=== PATIENT | male | born 1985 | race African-American/Black ===

== ENCOUNTER 2017-01-07 15:40 | Emergency (ER) | payer OTHER ==
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
[2017-01-07 16:05] LABS: ABSOLUTE EOSINOPHILS # (AUTO) 0.1 10^3/uL (0.0-0.6); ABSOLUTE LYMPHOCYTES (AUTO) 2.1 10^3/uL (0.5-4.7); ABSOLUTE MONOCYTES (AUTO) 0.4 10^3/uL (0.1-1.4); ABSOLUTE NEUT (AUTO) 3.1 10^3/uL (1.7-8.2); BASOPHILS % (AUTO) 0.8 % (0-2); HEMATOCRIT 45.9 % (37.9-51.0); HEMOGLOBIN 15.5 g/dL (13.5-17.0); HGB HCT DIFFERENCE 0.6; LYMPHOCYTES % (AUTO) 37.1 % (13-45); MEAN CORPUSCULAR HEMOGLOBIN 28.5 pg (27.0-33.4); MEAN CORPUSCULAR HGB CONC 33.7 g/dL (32.0-36.0); MEAN CORPUSCULAR VOLUME 85 fl (80-97); MONOCYTES % (AUTO) 7.6 % (3-13); RED BLOOD COUNT 5.42 10^6/uL (4.35-5.55); RED CELL DISTRIBUTION WIDTH 14.4 % (11.5-14.0); SEGMENTED NEUTROPHILS % (AUTO) 53.5 % (42-78); WHITE BLOOD COUNT 5.8 10^3/uL (4.0-10.5)
[2017-01-07 16:09] LABS: ADD ON TESTING BLD IN LAB ACKNOWLEDGE
[2017-01-07 16:23] LABS: ALANINE AMINOTRANSFERASE 34 U/L (21-72); ALBUMIN 4.4 g/dL (3.5-5.0); ALKALINE PHOSPHATASE 56 U/L (38-126); ANION GAP 16 (5-19); ASPARTATE AMINO TRANSFERASE 24 U/L (17-59); BILIRUBIN,DIRECT 0.3 mg/dL (0.0-0.4); BILIRUBIN,TOTAL 1.5 mg/dL (0.2-1.3); BLOOD UREA NITROGEN 14 mg/dL (7-20); CALCIUM 9.6 mg/dL (8.4-10.2); CARBON DIOXIDE 27 mmol/L (22-30); CHLORIDE 104 mmol/L (98-107); CREATININE RESULT 1.18 mg/dL (0.52-1.25); GLUCOSE 118 mg/dL (75-110); POTASSIUM 3.5 mmol/L (3.6-5.0); SODIUM 146.6 mmol/L (137-145); TOTAL PROTEIN 7.3 g/dL (6.3-8.2)
[2017-01-07 16:38] LABS: ALCOHOL < 10 mg/dL (NONE DETECTED)
[2017-01-07] MEDS ORDERED: DIPH/PERTUSS(ACELL)/TETANUS VAC/PF 0.5 ML SYR (>=10YO) IM ONE (17:05)
[2017-01-07] MEDS ORDERED: LIDOCAINE 1%/EPINEPHRINE INJ 20 ML VIAL INJ ONE (17:47)
[2017-01-07] MEDS ORDERED: CEFAZOLIN INJ 1 GM VIAL IV ONE (17:50)
[2017-01-07 19:27] VITALS: BP 147/82
--- NOTE | 2017-01-08 00:04 | EKG REPORT ---
SEVERITY:- ABNORMAL ECG - SINUS RHYTHM NONSPECIFIC T ABNORMALITIES, DIFFUSE LEADS PROLONGED QT INTERVAL : Confirmed by: Irwin Terrazas 08-Jan-2017 00:03:40
== END 2017-01-07 19:35 | disposition other institution (70) ==
LOC: ER 15:40
DX: S06.0X0A Concussion without loss of consciousness, initial encounter (principal); S01.81XA Laceration without foreign body of other part of head, initial encounter; S70.211A Abrasion, right hip, initial encounter; S80.812A Abrasion, left lower leg, initial encounter; S40.812A Abrasion of left upper arm, initial encounter; S40.811A Abrasion of right upper arm, initial encounter; V29.9XXA Motorcycle rider (driver) (passenger) injured in unspecified traffic accident, initial encounter; R41.0 Disorientation, unspecified; R51 Headache
CPT/HCPCS: 93005; 99285; 90471; 96365; 36415; 80307; 85025; 80053; 84484; 71010; 72170; 70450; 71260; 72125; 74177; 90715; 93010; J0690; J3490